=== PATIENT | female | born 1980 | race Caucasian/White ===

== ENCOUNTER 2024-06-09 22:39 | Emergency (ER) | payer BC, SELFPAY ==
--- NOTE | ~2024-06-09 | XR_ITS ---
CHEST RADIOGRAPH CLINICAL HISTORY: CP . COMPARISON: None available TECHNIQUE: Single portable view of the chest. FINDINGS The cardiomediastinal silhouette is unremarkable. The lungs are clear. Visualized osseous structures and soft tissues are unremarkable. IMPRESSION: No focal infiltrate or effusion. Reviewed, dictated and finalized at location A.
--- NOTE | ~2024-06-09 | CT_ITS ---
EXAMINATION: CTA chest PE protocol DATE: 06/09/2024 23:45 CDT INDICATION: Chest pain and tachycardia TECHNIQUE: Computed tomographic angiography (CTA) of the chest was performed with 100 mL Omnipaque-35 0 intravenous contrast. The dose-length product was 140.63 mGy-cm. Maximum intensity projection 3D-re constructions of the aorta and other arteries were constructed by the technologist on a separate work station. COMPARISON: None. FINDINGS/OBSERVATIONS: PULMONARY ARTERIES: No filling defect is identified within the main or proximal pulmonary artery. The main pulmonary artery is not enlarged. THORACIC AORTA: No aneurysmal dilatation or dissection is present. The great vessels are intact LUNGS: The lungs are clear. MEDIASTINUM: No morphologically suspicious or pathologically enlarged lymph nodes are identified with in the mediastinum or bilateral axilla. BONES OF THE CHEST: No acute fracture. No significant degenerative disease. No lytic or blastic lesions. HEART: The heart is of normal size, without pericardial effusion. IMPRESSION: No pulmonary embolus. No thoracic aortic dissection. The lungs are clear. Reviewed, dictated and finalized at location A.
--- NOTE | 2024-06-09 22:41 | ECG_ITS ---
Test Date: 2024-06-09 22:50:57 Measurements Intervals [place] Rate: 124 P: 49 KS: 141 QRS: 55 QRSD: 93 T: -11 QT: 327 QTc: 471 Interpretive Statements SINUS TACHYCARDIA NONSPECIFIC ST & T-WAVE ABNORMALITY- DIFFUSE LEADS BASELINE ARTIFACT- I, III, AVL ABNORMAL ECG No previous ECG available for comparison Electronically Signed On 06-10-2024 07:08:26 CDT by Alberto Hamlin D.O.
--- OUTSIDE RECORDS SUMMARY | 2024-06-09 22:41 | XMS_ITS | Clinical Summary ---
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 Gender Identity Not on file Sexual Orientation Not on file Plan of Treatment Health Maintenance Due Date Last Done Comments Hepatitis C Virus (HCV) Screening 1980 TdaP Immunization 1980 Hepatitis B Immunization (1 of 3 - 19+ 3-dose series) 10/15/1999 Pap Smear 2001 Cervical Cancer Screening (CCS) 2010 HPV/Cotest 2010 Discussion re Starting/Frequ ency of Mammograms 2020 Influenza Immunization (#1) 2023 SARS-COV-2 Immunization ( season) 2023 Respiratory Syncytial Virus (RSV) Immunization (Adult) (1 - 1-dose 75+ series) 10/15/2055 Meningococcal Immunization (ACWY) Aged Out No longer eligible based on patient's age to complete this topic Pneumococcal Immunization Combined Aged Out No longer eligible based on patient's age to complete this topic Rotavirus Immunization Aged Out No lo nger eligible based on patient's age to complete this topic
--- OUTSIDE RECORDS SUMMARY | 2024-06-09 22:41 | XMS_ITS | Data Portability ---
Author Organization [place] - [facility], [facility] Address [address] [facility] [place] [address] Assessment No assessment recorded. Plan of Treatment Reminders Order Date Submit Date Provider Last Modified By Organization Details Last Modified Time Details Appointments None recorded. Lab rapid SARS CoV 2 Ag, QL IA, respiratory specimen 2021 022 swhitting ton10 [facility], [address] [place] [address], [place], [address], 19:50:15 Referral None recorded. Procedures None recorded. Surgeries None recorded. Imaging None recorded. Medication Orders None recorded. Patient TargetsNo targets recorded. Patient InstructionsNo instructions recorded. Reason for Referral None Reported. Results Created Date Observation Date Name Description Value Unit Range Abnormal Flag Note LastModifiedBy Organization Detail LastModifiedTime 04/11/19 22 04/11/2021 rapid SARS CoV 2 Ag, QL IA, respi rator y speci men rapid SARS CoV 2 Ag, QL IA, respiratory specimen negati ve Not Available [address] [place], [address], 04/11/2021 19:48:51 Result Notes None recorded. Problems No Known Problems Medical Equipment None Reported. Allergies No known drug allergies Medications Not known to be on any medication Vitals Date Recorded Body height Body mass index (BMI) Body weight Provider Name and Address Organization Details Last Updated DateTime 04/11/2021 157.48 cm 21.9 kg/m2 48526.08 g Melissa Hartmann [facility] 04/11/2021 18:58:05 Social History None recorded. Functional Status None recorded. Mental Status None recorded. Family History Nothing Reported. Medical History No medical history recorded. Gynecological HistoryNo gynecological history recorded. Obstetrics History GPAL:G 0 P 0 0 0 0 Past Encounters Encounter ID Performer Location Encounter Start Date Encounter Closed Date Diagnosis/Indication Diagnosis SNOMED-CT Code Diagnosis ICD10 Code Diagnosis Note [id number] Pauline Munroe, SCOW HAND-Marce [facility] [place] [address] [place] [address] 04/11/2021 18:54:16 04/11/2021 19:51:14 Viral screening 661109436 Z11.52 Health Concerns Section Related Observation LastModified by Organization Detai ls LastModified Time None Recorded Concern Status LastModified by Organization Details LastModified Time None Recorded Advance Directives Directive None Recorded Payers Encounter Date Sequence Insurance Name Policy Number Policy Parr Covered Member ID Parr Member ID Guarantor Name 04/11/2021 1 [id number] Anthony Reyes [id number] Kristi Reyes OBGyn Episode No OBEpisode recorded.
[2024-06-09 22:45] VITALS: BP 124/73; PULSE 128; RESP 14; TEMP 36.5; O2SAT 100
[2024-06-09 22:51] VITALS: PULSE 125; O2SAT 100
[2024-06-09 22:58] LABS: Basophils Absolute Auto 0.1 K/mm3 (0.0-0.1); Basophils Percent Auto 0.7 % (0.2-1.2); Eosinophils Absolute Auto 0.3 K/mm3 (0-0.3); Eosinophils Percent Auto 2.7 % (0-4.4); Hematocrit 33.8 % (37.0-47.0); Hemoglobin 11.3 g/dL (12.0-15.0); Immature Granulocyte Absolute 0.02 K/mm3 (0.00-0.031); Immature Granulocyte Percent A 0.2 % (0-0.5); Lymphocytes Absolute Auto 4.14 K/mm3 (0.9-3.2); Lymphocytes Percent Auto 42.6 % (18.3-44.2); Mean Corpuscular HGB Conc 33.4 g/dl (32-36); Mean Corpuscular Hemoglobin 30.5 pg (26-34); Mean Corpuscular Volume 91.1 fl (80-100); Monocytes Absolute Auto 1.1 K/mm3 (0.1-0.6); Monocytes Percent Auto 11.5 % (2.6-8.5); Neutrophils Absolute Auto 4.1 K/mm3 (1.3-6.7); Neutrophils Percent Auto 42.3 % (45.5-73.1); Platelet Count Result 269 k/mm3 (150-375); Red Blood Count 3.71 M/mm3 (4.2-5.4); Red Cell Distribution Width 11.9 % (11.5-14.5); White Blood Count 9.7 K/mm3 (4.5-10.0)
--- OUTSIDE RECORDS SUMMARY | 2024-06-09 23:04 | XMS_ITS | Clinical Summary ---
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
[2024-06-09 23:06] LABS: INR 0.9; Partial Thromboplastin Time 33.6 Seconds (22.3-36.8); Prothrombin Time 12.9 Seconds (11.1-14.7)
[2024-06-09 23:10] LABS: Alanine Aminotransferase 14 U/L (6-35); Albumin Level 4.7 g/dL (3.5-5.1); Alkaline Phosphatase 64 U/L (38-126); Anion Gap 15 mmol/L (4-12); Aspartate Amino Transferase 27 U/L (14-36); Bilirubin,Total 0.3 mg/dL (0.2-1.3); Blood Urea Nitrogen 11 mg/dL (7-17); Calcium 8.9 mg/dL (8.4-10.2); Carbon Dioxide 20 mmol/L (22-30); Chloride 103 mmol/L (98-107); Estimated CRCL calculation 64 ml/min; Estimated Glomerular Filt Rate > 60; Glucose 139 mg/dL (65-110); Lipase 156 U/L (23-300); Potassium 2.8 mmol/L (3.4-5.0); Sodium 138 mmol/L (137-145)
[2024-06-09 23:20] LABS: Troponin I < 0.012 ng/mL (0.000-0.034)
[2024-06-09 23:22] LABS: BEDSIDEPREGUCG Negative (Negative)
[2024-06-09 23:35] LABS: NT Pro B Type Natriuretic Pept 39 pg/mL (19.9-100)
[2024-06-09] MEDS: diazePAM INJ (*CRX) 10 MG/2 ML SYRINGE 5 MG IV PUSH (23:39)
[2024-06-09] MEDS: POTASSIUM CHLORIDE 20 MEQ PACKET (FOR LIQUID) 40 MEQ PO (23:39)
[2024-06-10] MEDS: SODIUM CHLORIDE 0.9% IV 1,000 ML 999 ML IV CONT (00:06)
[2024-06-10] MEDS: MAG HYDROX/AL HYDROX/SIMETH 30 ML UDC PO (00:06)
[2024-06-10 00:41] VITALS: BP 115/79; PULSE 97; RESP 18; O2SAT 100
--- NOTE | 2024-06-10 00:45 | ED.GENADULT ---
HPI - General Adult General Chief complaint: Chest Pain Stated complaint: Pain in chest -felt like pacing out Time Seen by Provider: 06/09/24 22:53 History of Present Illness HPI narrative: This is a 43-year-old female presenting ED with chief of chest pain. Patient says she has been having burning/pressure on the left side of her chest for the last 2 weeks. Today got worse while she was cooking in the kitchen. The pain is nonradiating, moderate intensity and constant. It is associated with significant anxiety. Patient felt like she was going to faint. She denies nausea vomiting, exertional component, diaphoresis, lower extremity edema or risk factors for DVT PE. She has no risk factors for heart disease such as hypertension diabetes or tobacco use. Her father required a triple bypass at the age of 43. 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 Weight loss, non-intentional Anemia (10/31/20) hemoglobin 11.2 with iron 91, folic acid 16.5 and vitamin B12 377 on 10/31/2020 Urticaria COVID-19 (12/15/19) Acute bronchitis Exposure to COVID-19 virus Encounter for wellness examination in adult Family History Family History Father Heart disease Diabetes mellitus Grandparent Diabetes mellitus Grandparent Heart disease Grandparent Heart disease Social History Social History Smoking status: Never smoker Alcohol intake: current Drinks per week: 1 Substance use: never Substance use type: does not use Exam Narrative: APPEARANCE: Anxious appearing female Head: atraumatic. EYES: EOMI, NOSE: Atraumatic NECK: Trachea midline RESPIRATORY: No increased rate of breathing clear to auscultation CARDIOVASCULAR: Tachycardic, no peripheral edema, calves equal in diameter ABDOMINAL: Non-distended soft nontender MUSCULOSKELETAl: No obvious deformities NEURO: Alert. Moving 4/4 extremities SKIN:: Warm, dry. Normal color PSYCHIATRIC: Normal affect Course Vital Signs Vital signs: Vital Signs Temperature 97.7 F 06/09/24 22:45 Pulse Rate 128 H 06/09/24 22:45 Respiratory Rate 14 06/09/24 22:45 Blood Pressure 124/73 06/09/24 22:45 Pulse Oximetry 100 06/09/24 22:45 Temperature 97.7 F 06/09/24 22:45 Pulse Rate 94 06/10/24 02:21 Respiratory Rate 15 06/10/24 02:21 Blood Pressure 126/84 06/10/24 02:21 Pulse Oximetry 100 06/10/24 02:21 Oxygen Delivery Room Air 06/09/24 22:51 Medical Decision Making MDM Narrative Medical decision making narrative: -Course: 43-year-old female presenting with chest pain. She is tachycardic on arrival. Unclear if anxiety versus pathology. Given Valium while completing workup. CTA negative for PE, pneumonia or dissection. Troponins wnl x2. EKG showed sinus tachycardia. Heart rate improved with Valium. Patient requested Maalox which was provided. On re-evaluation patient's chest pain is improved. She is feels like the pain is more like muscle soreness now and is worse when she moves her left arm. Results were discussed with the patient. All questions answered. Patient will be discharged follow-up with her primary care physician. Given referral to Cardiology as well. Return precautions given. -DDX includes but is not limited to: PE, ACS, pneumonia pneumothorax, anxiety Vital Signs Vital Signs: Vital Signs Temperature 97.7 F 06/09/24 22:45 Pulse Rate 128 H 06/09/24 22:45 Respiratory Rate 14 06/09/24 22:45 Blood Pressure 124/73 06/09/24 22:45 Pulse Oximetry 100 06/09/24 22:45 Temperature 97.7 F 06/09/24 22:45 Pulse Rate 94 06/10/24 02:21 Respiratory Rate 15 06/10/24 02:21 Blood Pressure 126/84 06/10/24 02:21 Pulse Oximetry 100 06/10/24 02:21 Oxygen Delivery Room Air 06/09/24 22:51 Lab Data 06/09/24 22:49 06/09/24 22:49 Labs: Lab Results 06/09/24 06/09/24 06/10/24 Range/Units 22:49 23:18 01:44 WBC 9.7 (4.5-10.0) K/mm3 RBC 3.71 L (4.2-5.4) M/mm3 Hgb 11.3 L (12.0-15.0) g/dL Hct 33.8 L (37.0-47.0) % MCV 91.1 (80-100) fl MCH 30.5 (26-34) pg MCHC 33.4 (32-36) g/dl RDW 11.9 (11.5-14.5) % Plt Count 269 (150-375) k/mm3 MPV 10.0 (7.4-10.4) fl Immature Gran % (Auto) 0.2 (0-0.5) % Neut % (Auto) 42.3 L (45.5-73.1) % Lymph % (Auto) 42.6 (18.3-44.2) % Camp % (Auto) 11.5 H (2.6-8.5) % Eos % (Auto) 2.7 (0-4.4) % Baso % (Auto) 0.7 (0.2-1.2) % Lymph # (Auto) 4.14 H (0.9-3.2) K/mm3 Camp # (Auto) 1.1 H (0.1-0.6) K/mm3 Eos # (Auto) 0.3 (0-0.3) K/mm3 Baso # (Auto) 0.1 (0.0-0.1) K/mm3 Abs Immat Gran (auto) 0.02 (0.00-0.031) K/mm3 Absolute Neuts (auto) 4.1 (1.3-6.7) K/mm3 Absolute Nucleated RBC 0.000 (0.0-0.012) K/mm3 Nucleated RBC % 0.0 (0.0-0.2) % PT 12.9 (11.1-14.7) Seconds INR 0.9 APTT 33.6 (22.3-36.8) Seconds Sodium 138 (137-145) mmol/L Potassium 2.8 L* (3.4-5.0) mmol/L Chloride 103 (98-107) mmol/L Carbon Dioxide 20 L (22-30) mmol/L Anion Gap 15 H (4-12) mmol/L BUN 11 (7-17) mg/dL Creatinine 0.78 (0.7-1.0) mg/dL Estim Creat Clear Calc 64 ml/min Estimated GFR > 60 (59 - ) Glucose 139 H (65-110) mg/dL Calcium 8.9 (8.4-10.2) mg/dL Total Bilirubin 0.3 (0.2-1.3) mg/dL AST 27 (14-36) U/L ALT 14 (6-35) U/L Alkaline Phosphatase 64 (38-126) U/L Troponin I < 0.012 0.013 (0.000-0.034) ng/mL NT-Pro-B Natriuret Pep 39 (19.9-100) pg/mL Total Protein 8.0 (6.3-8.2) g/dL Albumin 4.7 (3.5-5.1) g/dL Lipase 156 (23-300) U/L POC Urine HCG, Qual Negative (Negative) Discharge Plan Discharge Clinical Impression: Chest pain Patient Disposition: Home Condition: Stable Instructions: Antibiotic Form, Chest Pain (ED) Additional Instructions: You were seen in the emergency department for chest pain. Thankfully your workup here was negative. Please follow-up with your primary care physician or the anatomical embalmer listed below. Please return to the ED if you develop chest pain difficulty breathing or any new or worsening symptoms. Patient Language: Nepalese Prescriptions: No Action cyanocobalamin (vitamin B-12) 1,000 mcg tablet 1,000 mcg PO DAILY azithromycin 250 mg tablet See Rx Instructions PO .COMPLEX Qty: 6 0RF Rx Instructions: take 500 mg today (day 1), then 250 mg for 4 days (days 2-5) PO Follow-up/Referrals: Nir Medellin MD [Physician] - 1 Week Blayne Jefferson MD [Primary Care Provider] - 1 Week Quality HEART score for chest pain patients History: slightly suspicious ECG: normal Age: < or = to 45 years Risk factors: 1 or 2 risk factors Troponin: < or = to 1x normal limit Heart score: 1
[2024-06-10 02:21] VITALS: BP 126/84; PULSE 94; RESP 15; O2SAT 100
[2024-06-10 02:21] LABS: Troponin I 0.013 ng/mL (0.000-0.034)
[2024-06-10 02:40] VITALS: BP 115/79; PULSE 88; RESP 25; O2SAT 99
== END 2024-06-10 02:40 | disposition home or self-care (01) ==
PROVIDERS: Emergency Provider Emergency Medicine; PCP Family Medicine
DX: R07.9 Chest pain, unspecified (principal)
CPT/HCPCS: 36415; 71045; 71275; 80053; 81025; 83690; 83880; 84484; 85025; 85610; 85730; 93005; 96361; 96374; 99284; A9270; J3360; J7030; Q9967

== ENCOUNTER → 2024-06-21 11:26 | Outpatient (CLI) | payer BC, SELFPAY ==
--- NOTE | ~2024-06-21 | XR_ITS ---
Left Shoulder Technique: AP and axillary views were obtained. Clinical History: Pain Findings: No fracture or dislocation is seen. Osseous alignment is anatomic. The glenohumeral and acr omioclavicular joint spaces are preserved. Soft tissues are unremarkable. Impression: Unremarkable left shoulder radiographs. Reviewed, dictated and finalized at [facility]. Impression: Unremarkable left shoulder radiographs.
--- OUTSIDE RECORDS SUMMARY | 2024-06-21 12:15 | XMS_ITS | Clinical Summary ---
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
== END ==
PROVIDERS: PCP Nurse Practitioner Family; Visit Provider Nurse Practitioner Family
DX: M25.512 Pain in left shoulder (principal)
CPT/HCPCS: 73030

== ENCOUNTER 2024-07-18 09:08 | Outpatient (CLI) | payer BC, SELFPAY ==
--- OUTSIDE RECORDS SUMMARY | 2024-07-18 09:22 | XMS_ITS | Data Portability ---
Author Organization [place] - [facility], [facility] Address [address] [facility] [place] [address] Assessment No assessment recorded. Plan of Treatment Reminders Order Date Submit Date Provider Last Modified By Organization Details Last Modified Time Details Appointments None recorded. Lab rapid SARS CoV 2 Ag, QL IA, respiratory specimen 2021 022 swhitting ton10 [facility], [address] [place] [address], [place], [address], 19:50:15 Referral None recorded. Procedures None recorded. [...] IA, respiratory specimen negati ve Not Available [address] [place], [address], 04/11/2021 19:48:51 Result Notes None recorded. Problems No Known Problems Medical Equipment None Reported. Allergies No known drug allergies Medications Not known to be on any medication Vitals Date Recorded Body height Body mass index (BMI) Body weight Provider Name and Address Organization Details Last Updated DateTime 04/11/2021 157.48 cm 21.9 kg/m2 005[address].08 g Melissa Hartmann [facility] 04/11/2021 18:58:05 Social History None recorded. Functional Status None recorded. Mental Status None recorded. Family History Nothing Reported. Medical History No medical history recorded. Gynecological HistoryNo gynecological history recorded. Obstetrics History GPAL:G 0 P 0 0 0 0 Past Encounters Encounter ID Performer Location Encounter Start Date Encounter Closed Date Diagnosis/Indication Diagnosis SNOMED-CT Code Diagnosis ICD10 Code Diagnosis Note [id number] Pauline Munroe, PAPER DELIVERER-Marce [facility] [place] [address] [facility] [place] [address] 04/11/2021 18:54:16 04/11/2021 19:51:14 Viral screening [id number] Z11.52 Health Concerns Section Related Observation LastModified by Organization Detai ls LastModified Time None Recorded Concern Status LastModified by Organization Details LastModified Time None Recorded Advance Directives Directive None Recorded Payers Encounter Date Sequence Insurance Name Policy Number Policy Parr Covered Member ID Parr Member ID Guarantor Name 04/11/2021 1 [place] [id number] Anthony Reyes [id number] Kristi Reyes OBGycaio Episode No OBEpisode recorded.
--- OUTSIDE RECORDS SUMMARY | 2024-07-18 09:22 | XMS_ITS | Clinical Summary ---
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
--- NOTE | 2024-07-18 09:47 | EST_ITS ---
Patient Info Name: Kristi Reyes Age: 43 years : 1980 Gender: Female Ht: 62 in Wt: 135 lbs BSA: 1.65 m2 HR: 76 bpm BP: 103 / 72 mmHg Exam Date: 07/18/2024 9:47 AM Patient Status: O Admit Date: 07/18/2024 Exam Type: CA stress test treadmill A treadmill exercise stress test was performed. Staff Attending Provider: Tessa Vega Exercise Technologist: Lynsey Guzman Exercise Physician: Alberto Hamlin DO Summary 1. 1. Negative Ayan exercise stress test for ischemic ST changes by ECG criteria. 2. 2. Reduced functional capacity, achieving 7 METs of workload. 3. 3. Appropriate HR response to exercise. 4. 4. Appropriate HR recovery at 1 minute post exercise. 5. 5. No imaging with stress testing. 6. 6. Patient informed of the above results. Protocol: Ayan Stress ECG Details Stage: REST Duration (min): 0 min : 49 sec Speed (mph): 0.0 Grade (%): 0 HR (bpm): 81 SBP (mmHg): 103 DBP (mmHg): 72 METS: --- Stage: REST Duration (min): 1 min : 35 sec Speed (mph): 0.0 Grade (%): 0 HR (bpm): 68 SBP (mmHg): 103 DBP (mmHg): 72 METS: --- Stage: REST Duration (min): 11 min : 30 sec Speed (mph): 0.0 Grade (%): 0 HR (bpm): 94 SBP (mmHg): 103 DBP (mmHg): 72 METS: --- Stage: STAGE 1 Duration (min): 1 min : 0 sec Speed (mph): 1.7 Grade (%): 10 HR (bpm): 124 SBP (mmHg): 103 DBP (mmHg): 72 METS: --- Stage: STAGE 1 Duration (min): 2 min : 0 sec Speed (mph): 1.7 Grade (%): 10 HR (bpm): 128 SBP (mmHg): 103 DBP (mmHg): 72 METS: --- Stage: STAGE 1 Duration (min): 3 min : 0 sec Speed (mph): 1.7 Grade (%): 10 HR (bpm): 142 SBP (mmHg): 126 DBP (mmHg): 74 METS: --- Stage: STAGE 2 Duration (min): 1 min : 0 sec Speed (mph): 2.5 Grade (%): 12 HR (bpm): 151 SBP (mmHg): 126 DBP (mmHg): 74 METS: --- Stage: STAGE 2 Duration (min): 2 min : 0 sec Speed (mph): 2.5 Grade (%): 12 HR (bpm): 163 SBP (mmHg): 135 DBP (mmHg): 76 METS: --- Stage: STAGE 2 Duration (min): 3 min : 0 sec Speed (mph): 2.5 Grade (%): 12 HR (bpm): 166 SBP (mmHg): 135 DBP (mmHg): 76 METS: --- Stage: STAGE 3 Duration (min): 0 min : 1 sec Speed (mph): 3.4 Grade (%): 14 HR (bpm): 166 SBP (mmHg): 135 DBP (mmHg): 76 METS: --- Stage: RECOVERY Duration (min): 0 min : 58 sec Speed (mph): 0.0 Grade (%): 0 HR (bpm): 137 SBP (mmHg): 142 DBP (mmHg): 72 METS: --- Stage: RECOVERY Duration (min): 1 min : 58 sec Speed (mph): 0.0 Grade (%): 0 HR (bpm): 107 SBP (mmHg): 142 DBP (mmHg): 72 METS: --- Stage: RECOVERY Duration (min): 2 min : 58 sec Speed (mph): 0.0 Grade (%): 0 HR (bpm): 97 SBP (mmHg): 118 DBP (mmHg): 73 METS: --- Stage: RECOVERY Duration (min): 3 min : 3 sec Speed (mph): 0.0 Grade (%): 0 HR (bpm): 99 SBP (mmHg): 118 DBP (mmHg): 73 METS: --- Rest HR: 94 bpm Peak HR: 168 bpm Rest Sys BP: 103 mmHg Peak Sys BP: 142 mmHg Max Pred HR: 177 bpm % Max Pred HR: 95 % Target HR: 150 bpm Max RPP: 23,856 bpm*mmHg Villegas Score: -2 Termination Reason: Reached target heart rate or workload Cardiac Symptoms: Shortness of breath Max ST Seg Deviation: -1.60 mm Total Time: 6 min : 1 sec Rest Guzman BP: 72 mmHg Peak Guzman BP: 72 mmHg Angina Score: None Total METS: 7.1 Resting ECG Sinus rhythm. Stress ECG No ST changes. Arrhythmias None. Report Signatures
== END 2024-07-18 09:09 | disposition home or self-care (01) ==
PROVIDERS: PCP Nurse Practitioner Family; Visit Provider Nurse Practitioner Family
DX: R06.09 Other forms of dyspnea (principal)
CPT/HCPCS: 93017